=== PATIENT | female | born 1990 | race Caucasian/White ===

== ENCOUNTER 2016-09-09 02:41 | Emergency (ER) | payer OTHER ==
[~2016-09-09] VITALS: Ht 170.2 cm; Wt 77.1 kg
[~2016-09-09 02:41] MED LIST: IRON325 MG PO; PRENATAL1 TA2 PO
[2016-09-09 02:47] VITALS: BP 109/48
--- NOTE | 2016-09-09 03:05 | NUR ---
PATIENT TO BED 7.
--- NOTE | 2016-09-09 03:25 | NUR ---
26Y/F PT PRESENTS TO ED WITH C/O LOWER BACK PAIN [id number]. PATIENT A1 IUP 28 WKS, STATES HAVING PAIN X 2 HRS, ALSO STATES LT EARACHE X2DAYS. HX GESTATIONAL DIABETESDENIES N/V/D; SKIN IS PINK/WARM/DRY; AAOX4 WITH EVEN AND STEADY GAIT; LUNGS CLEAR BL; HR EVEN AND REGULAR; PT DENIES ANY FEVER, CP, SOB, OR COUGH AT THIS TIME; PATIENT STATES PAIN OF 4/10 AT THIS TIME; VSS; PATIENT POSITIONED FOR COMFORT; HOB ELEVATED; BEDRAILS UP X2; BED DOWN. ER MD MADE AWARE OF PT STATUS.
--- NOTE | 2016-09-09 04:03 | NUR ---
Patient being evaluated by physician at bedside.
[2016-09-09 04:15] VITALS: BP 113/56
--- NOTE | 2016-09-09 04:15 | NUR ---
Patient discharged with v/s stable. Written and verbal after care instructions given and explained. Patient alert, oriented and verbalized understanding of instructions. Ambulatory with steady gait. All questions addressed prior to discharge. ID band removed. Patient advised to follow up with PMD. Rx of SUDAFED given. Patient educated on indication of medication including possible reaction and side effects. Opportunity to ask questions provided and answered.
== END 2016-09-09 04:15 | disposition home or self-care (01) ==
LOC: MED 02:41
DX: O26.892 Other specified pregnancy related conditions, second trimester (principal); J06.9 Acute upper respiratory infection, unspecified; M54.5 Low back pain; H92.09 Otalgia, unspecified ear; Z88.0 Allergy status to penicillin; Z3A.28 28 weeks gestation of pregnancy

== ENCOUNTER 2017-06-19 06:29 | Day surgery (SDC) | payer OTHER ==
[~2017-06-19] VITALS: Ht 170.2 cm; Wt 72.6 kg
[~2017-06-19 06:29] MED LIST changes: +FERR-142 PO; -IRON325 MG PO; +PREN-103 PO; +PREN-385 PO; -PRENATAL1 TA2 PO
[2017-06-19] MEDS ORDERED: IBUPROFEN 800 MG TAB PO PRN (07:20)
[2017-06-19] MEDS ORDERED: MORPHINE SULFATE 4 MG/ML SYR IM/IVP PRN (07:20)
[2017-06-19] MEDS ORDERED: ACETAMINOPHEN/CODEINE 300/30MG 1 TAB PO PRN (07:20)
[2017-06-19] MEDS ORDERED: ONDANSETRON 4 MG/2 ML VIAL IVP PRN ×2 (07:20→10:10)
[2017-06-19] MEDS ORDERED: CLINDAMYCIN 600 MG in DEXTROSE 5% 50 ML IV ONE (08:05)
[2017-06-19] MEDS ORDERED: LIDOCAINE MPF 1% 50 MG/5 ML VIAL INJ ONE (09:49)
[2017-06-19] MEDS ORDERED: SEVOFLURANE 250 ML BTL INH ONE (09:49)
[2017-06-19] MEDS ORDERED: PROPOFOL 200 MG/20 ML VIAL IV ONE (09:49)
[2017-06-19] MEDS ORDERED: MIDAZOLAM 2 MG/2 ML VIAL ONE (10:04)
[2017-06-19] MEDS ORDERED: HYDROmorphone 1 MG/ML AMP IVP PRN (10:10)
== END 2017-06-19 11:55 | disposition home or self-care (01) ==
LOC: MDS 06:29 → MMU 06:35 → MDS 11:55
PROVIDERS: ATTEND Obstetrics & Gynecology
DX: N87.1 Moderate cervical dysplasia (principal); I12.9 Hypertensive chronic kidney disease with stage 1 through stage 4 chronic kidney disease, or unspecified chronic kidney disease; E11.22 Type 2 diabetes mellitus with diabetic chronic kidney disease; N18.9 Chronic kidney disease, unspecified; D64.9 Anemia, unspecified; I63.9 Cerebral infarction, unspecified; E66.3 Overweight; J45.909 Unspecified asthma, uncomplicated; K21.9 Gastro-esophageal reflux disease without esophagitis; F03.90 Unspecified dementia, unspecified severity, without behavioral disturbance, psychotic disturbance, mood disturbance, and anxiety; G40.909 Epilepsy, unspecified, not intractable, without status epilepticus; F17.210 Nicotine dependence, cigarettes, uncomplicated; Z88.0 Allergy status to penicillin
CPT/HCPCS: 58120; J2001; J2250; J2704; J3490; J7060; J7120

== ENCOUNTER 2021-02-17 17:21 | Emergency (ER) | payer OTHER ==
[~2021-02-17] VITALS: Ht 170.2 cm; Wt 79.4 kg
[2021-02-17 17:56] LABS: BASOPHILS % (AUTO) 0.3 % (0.0-2.0); EOSINOPHILS % (AUTO) 0.4 % (0.0-4.0); HEMATOCRIT 26.3 % (36-48); HEMOGLOBIN 8.2 g/dL (12.0-16.0); LYMPHOCYTES # (AUTO) 1.9 K/uL (2.5-16.5); LYMPHOCYTES % (AUTO) 32.2 % (20.5-51.1); MEAN CORPUSCULAR HEMOGLOBIN 22 pg (27-31); MEAN CORPUSCULAR HGB CONC 31 g/dL (33-37); MONOCYTES # (AUTO) 0.4 K/uL (0.8-1.0); MONOCYTES % (AUTO) 6.9 % (1.7-9.3); NEUTROPHILS # (AUTO) 3.5 K/uL (1.8-7.7); NEUTROPHILS % (AUTO) 60.2 % (42.2-75.2); PLATELET COUNT (AUTO) 277 K/uL (140-450); RED BLOOD CELL COUNT(AUTO) 3.81 MIL/uL (4.20-5.40); RED CELL DISTRIBUTION WIDTH 17.4 % (11.6-13.7); WHITE BLOOD COUNT (AUTO) 5.8 K/uL (4.8-10.8)
[2021-02-17 18:02] VITALS: BP 130/76
--- NOTE | 2021-02-17 18:24 | NUR ---
PT AMBULATED TO ER BED 2.
[2021-02-17 18:28] LABS: APPEARANCE,URINE HAZY (CLEAR); BILIRUBIN,URINE NEGATIVE (NEGATIVE); BLOOD, URINE 3+ (NEGATIVE); COLOR,URINE YELLOW (YELLOW); LEUKOCYTE ESTERASE ,URINE TRACE (NEGATIVE); NITRITE, URINE NEGATIVE (NEGATIVE); UGLUCOSE NEGATIVE (NEGATIVE)
[2021-02-17 18:40] LABS: RBC,URINE 11-20 (MOD) /HPF (0-5)
--- NOTE | 2021-02-17 18:46 | NUR ---
PT COMPLAINS OF VAGINAL BLEEDING X YESTERDAY. PT STATES CHANGE 1 PAD PER DAY. PT DENIES CRAMPING OR ABDOMINAL PAIN. PT DENIES DIZZINESS. PT STATES 4 WEEKS, LMP ON December.
--- NOTE | 2021-02-17 19:07 | NUR ---
PATIENT IS BACK FROM U/S, LABS HAVE BEEN DRAWN, RESTING COMFORTABLY WAITING FOR RESULTS. DENIES PAIN.
--- NOTE | 2021-02-17 20:00 | NUR ---
RECIVED PAPER FROM LAB FOR REPORT OF O POSITIVE BLOOD TYPE. PER LAB UNABLE TO CHART IN PATIENT CHART AND PRINTED REPORT GIVEN TO DELTA.
--- NOTE | 2021-02-17 20:23 | NUR ---
Patient discharged with v/s stable. Written and verbal after care instructions given and explained. Patient verbalized understanding. Ambulatory with steady gait. All questions addressed prior to discharge. Advised to follow up with PMD.
== END 2021-02-17 20:23 | disposition home or self-care (01) ==
LOC: MED 17:21
DX: O20.9 Hemorrhage in early pregnancy, unspecified (principal); Z88.0 Allergy status to penicillin; Z3A.01 Less than 8 weeks gestation of pregnancy
CPT/HCPCS: 36415; 76817; 81001; 84702; 85025; 86900; 86901; 87086; 99284